=== PATIENT | male | born 1990 | race Caucasian/White ===

== ENCOUNTER 2022-10-26 11:32 | Inpatient (IN) | payer BC ==
[~2022-10-26 11:32] MED LIST: Iopamidol-370 76% 500 ML 1 ML ONE
[2022-10-26 12:24] LABS: #Eosinphils 0.1 thou/uL (0.0-0.7); #Monocytes 1.2 thou/uL (0.11-0.59); #Neutrophils 7.8 thou/uL (1.40-6.50); %Basophils 0.3 % (0.0-1.0); %Eosinophils 0.8 % (0.0-10.0); %Lymphocytes 24.8 % (21.0-51.0); %Monocytes 10.1 % (0.0-10.0); %Neutrophils 64.1 % (42.0-75.0); Hemoglobin 16.9 g/dL (14.0-18.0); Mean Corpuscular Hemoglobin 30.3 pg (27.0-31.0); Mean Corpuscular Volume 89.1 fl (78.0-98.0); Mean Platelet Volume 8.7 fL (7.4-10.4); Platelet Count 286 10x3/uL (130-400); RBC Distribution Width 11.9 % (11.5-14.5); Red Blood Cell (RBC) Count 5.58 mill/uL (4.70-6.10); White Blood Cell (WBC) Count 12.2 10x3/uL (4.8-10.8)
[2022-10-26 12:46] LABS: PTT 28.7 sec (22.9-36.1); Prothrombin Time 13.9 sec (12.0-14.7)
[2022-10-26 12:58] LABS: ALT (SGPT) 22 U/L (8-55); AST (SGOT) 21 U/L (5-34); Albumin 4.3 g/dL (3.5-5.0); Alkaline Phosphatase 79 U/L (40-110); Anion Gap 18 mmol/L (10-20); BUN (Urea Nitrogen) 12 mg/dL (8.9-20.6); Bilirubin, Total 0.7 mg/dL (0.2-1.2); Calc. Creatinine Clearance 0 mL/min (70-130); Calcium 9.3 mg/dL (7.8-10.44); Carbon Dioxide 17 mmol/L (22-29); Chloride 105 mmol/L (98-107); Estimated GFR 107; Globulin 3.9 g/dL (2.4-3.5); Glucose 100 mg/dL (70-105); Potassium 4.4 mmol/L (3.5-5.1); Protein, Total 8.2 g/dL (6.0-8.3); Sodium 136 mmol/L (136-145)
[2022-10-26] MEDS ORDERED: Acetaminophen 325 MG TAB PO PRN (15:26)
[2022-10-26] MEDS ORDERED: Ondansetron PF 4 MG/2 ML Vial IVP PRN (15:26)
[2022-10-26 15:50] LABS: PTT 27.4 sec (22.9-36.1); Prothrombin Time 13.9 sec (12.0-14.7)
[2022-10-26 16:25] LABS: SARS-CoV-2 NAA Rapid Test DETECTED (NotDetected)
[2022-10-26 16:51] LABS: CKMB 4.3 ng/mL (0-6.6)
[2022-10-26 18:35] VITALS: BP 115/65
[2022-10-26 19:58] LABS: CKMB 3.2 ng/mL (0-6.6)
[2022-10-26 20:37] VITALS: BMI 38.1
[2022-10-27 07:47] LABS: #Basophils 0.1 thou/uL (0.0-0.2); #Eosinphils 0.3 thou/uL (0.0-0.7); #Lymphocytes 4.2 thou/uL (1.20-3.40); #Monocytes 1.1 thou/uL (0.11-0.59); #Neutrophils 5.9 thou/uL (1.40-6.50); %Basophils 0.9 % (0.0-1.0); %Eosinophils 2.3 % (0.0-10.0); %Lymphocytes 36.4 % (21.0-51.0); %Monocytes 9.7 % (0.0-10.0); %Neutrophils 50.8 % (42.0-75.0); Hemoglobin 15.2 g/dL (14.0-18.0); Mean Corpuscular HGB CONC 33.8 g/dL (32.0-36.0); Mean Corpuscular Volume 88.7 fl (78.0-98.0); Mean Platelet Volume 9.1 fL (7.4-10.4); Platelet Count 240 10x3/uL (130-400); RBC Distribution Width 11.8 % (11.5-14.5); Red Blood Cell (RBC) Count 5.08 mill/uL (4.70-6.10); White Blood Cell (WBC) Count 11.7 10x3/uL (4.8-10.8)
[2022-10-27 07:48] LABS: Anion Gap 14 mmol/L (10-20); BUN (Urea Nitrogen) 11 mg/dL (8.9-20.6); Calc. Creatinine Clearance 205 mL/min (70-130); Calcium 8.9 mg/dL (7.8-10.44); Carbon Dioxide 21 mmol/L (22-29); Chloride 107 mmol/L (98-107); Estimated GFR 118; Glucose 100 mg/dL (70-105); Sodium 138 mmol/L (136-145)
[2022-10-27] MEDS: Enoxaparin 120 MG/0.8 ML SYRINGE SC SCH (17:57)
[2022-10-28] MEDS: Enoxaparin 120 MG/0.8 ML SYRINGE SC SCH (05:48)
[2022-10-28 06:11] LABS: #Basophils 0.1 thou/uL (0.0-0.2); #Eosinphils 0.4 thou/uL (0.0-0.7); #Lymphocytes 3.8 thou/uL (1.20-3.40); #Monocytes 0.9 thou/uL (0.11-0.59); #Neutrophils 4.4 thou/uL (1.40-6.50); %Eosinophils 3.7 % (0.0-10.0); %Lymphocytes 39.4 % (21.0-51.0); %Monocytes 9.7 % (0.0-10.0); %Neutrophils 46.1 % (42.0-75.0); Hemoglobin 15.2 g/dL (14.0-18.0); Mean Corpuscular HGB CONC 33.5 g/dL (32.0-36.0); Mean Corpuscular Hemoglobin 30.1 pg (27.0-31.0); Mean Platelet Volume 8.8 fL (7.4-10.4); Platelet Count 231 10x3/uL (130-400); RBC Distribution Width 11.8 % (11.5-14.5); Red Blood Cell (RBC) Count 5.06 mill/uL (4.70-6.10); White Blood Cell (WBC) Count 9.6 10x3/uL (4.8-10.8)
[2022-10-28 06:36] LABS: Anion Gap 15 mmol/L (10-20); BUN (Urea Nitrogen) 13 mg/dL (8.9-20.6); Calc. Creatinine Clearance 217 mL/min (70-130); Carbon Dioxide 19 mmol/L (22-29); Chloride 107 mmol/L (98-107); Estimated GFR 120; Glucose 97 mg/dL (70-105); Potassium 4.3 mmol/L (3.5-5.1); Sodium 137 mmol/L (136-145)
[2022-10-28 13:51] LABS: Troponin I 0.413 ng/mL (< 0.028)
[2022-10-28] MEDS: Apixaban 5 MG TAB PO SCH (20:24)
[2022-10-29 07:22] VITALS: TEMP 97.6
[2022-10-29] MEDS: Apixaban 5 MG TAB PO SCH (09:42)
== END 2022-10-29 17:56 | disposition home or self-care (01) | DRG 175 ==
LOC: ERS 11:32 → ERHOLD 15:54 → IMCU/EMU 20:03
PROVIDERS: ADMIT Internal Medicine; ATTEND Family Medicine
DX: I26.99 Other pulmonary embolism without acute cor pulmonale (principal); J96.01 Acute respiratory failure with hypoxia; U07.1 COVID-19; I82.402 Acute embolism and thrombosis of unspecified deep veins of left lower extremity; F41.9 Anxiety disorder, unspecified; E66.9 Obesity, unspecified; F32.A Depression, unspecified; Z79.899 Other long term (current) drug therapy; Z68.37 Body mass index [BMI] 37.0-37.9, adult
CPT/HCPCS: 36415; 36416; 71275; 80048; 80053; 82553; 83605; 83880; 84484; 85025; 85610; 85730; 87040; 93005; 93306; 93970; 96361; 96372; 96374; J1650; Q9967; U0002